=== PATIENT | female | born 1965 | race Caucasian/White ===

== ENCOUNTER 2023-02-23 23:15 | Emergency (ER) | payer BC ==
[~2023-02-23] VITALS: Ht 157.5 cm; Wt 73.9 kg
[2023-02-23 23:20] VITALS: BP_SYST 150; PULSE 92; RESP 16; TEMP 97.9; O2SAT 96
[2023-02-24] MEDS ORDERED: methylPREDNISolone SOD SUCC/PF 62.5 MG/ML VIAL IVP ONE (00:30)
[2023-02-24] MEDS ORDERED: CLINDAMYCIN 900 mg/50mL D5W 50 ML IV ONE (00:30)
[2023-02-24 00:58] LABS: BASOPHILS # (AUTO) 0.1 K/uL (0.0-0.2); BASOPHILS % (AUTO) 0.6 % (0.0-2.0); EOSINOPHILS # (AUTO) 0.2 K/uL (0.0-0.4); EOSINOPHILS % (AUTO) 1.4 % (0.0-4.0); HEMATOCRIT 42.9 % (36-48); HEMOGLOBIN 14.2 g/dL (12.0-16.0); LYMPHOCYTES # (AUTO) 1.3 K/uL (1.0-5.5); LYMPHOCYTES % (AUTO) 8.3 % (20.5-51.5); MEAN CORPUSCULAR HEMOGLOBIN 28 pg (27-31); MEAN CORPUSCULAR HGB CONC 33 % (32-36); MEAN CORPUSCULAR VOLUME 84 fL (79.0-98.0); MONOCYTES # (AUTO) 1.4 K/uL (0.0-1.0); MONOCYTES % (AUTO) 8.8 % (1.7-9.3); NEUTROPHILS # (AUTO) 12.7 K/uL (1.8-7.7); NEUTROPHILS % (AUTO) 80.9 % (40.0-70.0); PLATELET COUNT (AUTO) 262 K/uL (130-430); RED BLOOD CELL COUNT(AUTO) 5.14 MIL/uL (4.2-6.2); RED CELL DISTRIBUTION WIDTH 13.5 % (9.0-15.0); WHITE BLOOD COUNT (AUTO) 15.7 K/uL (4.8-10.8)
[2023-02-24 02:26] LABS: ALBUMIN 3.3 g/dL (3.4-4.8); CALCIUM 8.7 mg/dL (8.4-11.0); CREATININE 0.68 mg/dL (0.55-1.30); POTASSIUM 3.3 mmol/L (3.5-5.1); TOTAL BILIRUBIN 1.9 mg/dL (0.0-1.0); TOTAL PROTEIN, SERUM 7.6 g/dL (6.4-8.3)
[2023-02-24] MEDS ORDERED: CLIN-142 PO (08:46)
[2023-02-24] MEDS ORDERED: IBUP-1969 PO (08:46)
[2023-02-24] MEDS ORDERED: PRED20TA PO (08:46)
[2023-02-24 11:09] VITALS: BP_SYST 106; PULSE 78; RESP 16; TEMP 98.3; O2SAT 94
== END 2023-02-24 08:57 | disposition home or self-care (01) ==
LOC: SED 23:15
DX: J36 Peritonsillar abscess (principal); Z88.0 Allergy status to penicillin; Z79.899 Other long term (current) drug therapy
CPT/HCPCS: 99285; 80053; 85025; 86403; 36415; 87081; 83605; 87040; 96365; 70491; 96375; 76376; J3490; J2930; Q9967